=== PATIENT | female | born 1965 | race Two or more races ===

== ENCOUNTER → 2024-08-08 | Outpatient (CLI) | payer MEDICAID, SELFPAY ==
--- NOTE | 2024-08-08 14:15 | XR_ITS ---
Examination: Breast ultrasound, unilateral, left complete Date and time of exam: August 08, 2024 1500 hours INDICATIONS: Mammogram 05/16/2024 10 mm focal asymmetry outer left breast CC view Technique: Real-time mansfield scale ultrasonographic imaging performed left breast including all 4 quadrants as well as nipple retroareolar and axillary region. Findings: No cystic or solid mass IMPRESSION: BI-RADS Category 1: Negative study
--- NOTE | 2024-08-08 14:45 | XR_ITS ---
Examination: Diagnostic digital mammography, unilateral, left Computer aided detection 3-D breast Tomosynthesis, unilateral Date and time of exam: August 08, 2024 1445 hours INDICATIONS: Mammogram 05/16/2024 10 mm focal asymmetry outer left breast CC view, 2.8 cm from the nipple Technique: Nonmagnified MLO, CC views of the left breast have been obtained, reconstructed from 3-D Tomosynthesis images. R2 computer aided detection program utilized for evaluation of suspicious masses and/or abnormal calcifications. 3-D Tomosynthesis images obtained. Findings: The breast is heterogeneously dense, which may obscure small masses Focal asymmetry remains outer left breast on the spot compression CC view Impression: BI-RADS category 3: Probably benign findings One additional 6 month left mammogram follow-up is needed to document stability of small focal asymmetry outer left breast on the spot compression CC view
== END | disposition home or self-care (01) ==
LOC: CDIM 14:34
PROVIDERS: PCP Family Medicine; Referring Provider Family Medicine; Visit Provider Family Medicine
DX: R92.332 Mammographic heterogeneous density, left breast (principal); N64.89 Other specified disorders of breast
CPT/HCPCS: 76641; 77061; 77065; G0279